=== PATIENT | female | born 1970 | race Caucasian/White ===

== ENCOUNTER 2018-02-18 10:21 | Emergency (ER) | payer MEDICAID ==
[~2018-02-18] VITALS: Ht 154.9 cm; Wt 65.8 kg
--- NOTE | 2018-02-18 10:23 | NUR ---
PT AMBULATES TO BED 4
[2018-02-18 10:28] VITALS: BP 130/78
--- NOTE | 2018-02-18 10:28 | NUR ---
47/ F BIB , C/O INTERMITTENT THROBBING RT EAR PAIN X 5 DAYS. PATIENT STATES THAT FOR THE PAST TWO MORNINGS SHE HAS WOKEN WITH WAXY DISCHARGE. PATIENT TOOK [facility] 3 [facility]YS AND MOTRIN LAST NIGHT WITH NO RELIEF. DENIES DIZZINESS, TRUAMA OR INJURY, SINGH, N/V/D, FEVERS, OR SOB. AOX4, STEADY GAIT, SAFETY PRECAUTIONS IN PLACE.
--- NOTE | 2018-02-18 10:32 | NUR ---
Patient being evaluated by physician at bedside.
[2018-02-18 10:45] VITALS: BP 130/78
--- NOTE | 2018-02-18 10:45 | NUR ---
Patient discharged with v/s stable. Written and verbal after care instructions given and explained. Patient alert, oriented and verbalized understanding of instructions. Ambulatory with steady gait. All questions addressed prior to discharge. ID band removed. Patient advised to follow up with PMD. Rx of CIPRODEX AND MOTRIN given. Patient educated on indication of medication including possible reaction and side effects. Opportunity to ask questions provided and answered.
== END 2018-02-18 10:45 | disposition home or self-care (01) ==
LOC: MED 10:21
DX: H60.91 Unspecified otitis externa, right ear (principal)
CPT/HCPCS: 99283

== ENCOUNTER 2022-02-09 09:51 | Day surgery (SDC) | payer OTHER ==
[~2022-02-09] VITALS: Ht 152.4 cm; Wt 56.7 kg
[2022-02-09] MEDS ORDERED: diphenhydrAMINE 50 MG/ML VIAL ONE (10:29)
[2022-02-09] MEDS ORDERED: MIDAZOLAM 5 MG/5 ML VIAL ONE (10:30)
[2022-02-09] MEDS ORDERED: fentaNYL citrate 0.05 MG/ML VIAL ONE (10:30)
[2022-02-09] MEDS ORDERED: MIDAZOLAM 5 MG/5 ML VIAL IV ONE (13:05)
[2022-02-09] MEDS ORDERED: fentaNYL citrate 0.05 MG/ML VIAL IVP ONE (13:05)
== END 2022-02-09 12:05 | disposition home or self-care (01) ==
LOC: MMU 09:51 → MDS 09:51 → MMU 10:07 → MDS 12:05
PROVIDERS: ATTEND Internal Medicine Gastroenterology
DX: R13.10 Dysphagia, unspecified (principal); K29.50 Unspecified chronic gastritis without bleeding; K20.90 Esophagitis, unspecified without bleeding; I10 Essential (primary) hypertension; F32.A Depression, unspecified; E78.00 Pure hypercholesterolemia, unspecified; Z79.899 Other long term (current) drug therapy; Z20.822 Contact with and (suspected) exposure to COVID-19
CPT/HCPCS: 43239; 87426; J2250; J3010; 82948; J1200

== ENCOUNTER 2022-05-18 09:15 | Day surgery (SDC) | payer OTHER ==
[~2022-05-18] VITALS: Ht 152.4 cm; Wt 62.1 kg
[2022-05-18] MEDS ORDERED: MIDAZOLAM 5 MG/5 ML VIAL ONE (10:16)
[2022-05-18] MEDS ORDERED: fentaNYL citrate 0.05 MG/ML VIAL ONE (10:16)
[2022-05-18] MEDS ORDERED: diphenhydrAMINE 50 MG/ML VIAL ONE (10:16)
[2022-05-18] MEDS ORDERED: fentaNYL citrate 0.05 MG/ML VIAL IVP ONE (14:45)
[2022-05-18] MEDS ORDERED: MIDAZOLAM 2 MG/2 ML VIAL IVP ONE (14:45)
== END 2022-05-18 12:08 | disposition home or self-care (01) ==
LOC: MDS 09:15 → MMU 09:16 → MDS 12:08
PROVIDERS: ATTEND Internal Medicine Gastroenterology
DX: R13.10 Dysphagia, unspecified (principal); I10 Essential (primary) hypertension; F32.A Depression, unspecified; E78.00 Pure hypercholesterolemia, unspecified; Z90.710 Acquired absence of both cervix and uterus; Z20.822 Contact with and (suspected) exposure to COVID-19
CPT/HCPCS: 43235; 87426; J2250; J3010; J1200

== ENCOUNTER 2023-09-28 12:39 | Emergency (ER) | payer OTHER ==
[~2023-09-28] VITALS: Ht 152.4 cm; Wt 65.5 kg
[2023-09-28 13:04] VITALS: BP 133/78; PULSE 91; RESP 18; TEMP 98.2; O2SAT 96
[2023-09-28] MEDS ORDERED: ACET-8905 PO (14:35)
[2023-09-28] MEDS ORDERED: IBUP-2213 PO (14:35)
[2023-09-28] MEDS: KETOROLAC 60 MG/2 ML VIAL IM ONE (14:58)
[2023-09-28 15:00] VITALS: BP 133/78; PULSE 91; RESP 18; TEMP 98.2; O2SAT 96
== END 2023-09-28 15:00 | disposition home or self-care (01) ==
LOC: MED 12:39
DX: R51.9 Headache, unspecified (principal); M25.512 Pain in left shoulder; Z98.890 Other specified postprocedural states; Z79.899 Other long term (current) drug therapy
CPT/HCPCS: 73030; 96372; 99283; J1885